=== PATIENT | female | born 1955 | race American Indian/Alaskan Native ===

== ENCOUNTER 2017-09-03 20:35 | Emergency (ER) | payer OTHER ==
[2017-09-03 20:48] VITALS: BP 142/73
[2017-09-03] MEDS ORDERED: PEPCID IV ONE ×2 (20:49→21:05)
[2017-09-03] MEDS ORDERED: DECADRON ONE (20:49)
[2017-09-03] MEDS ORDERED: BENADRYL ONE (20:49)
[2017-09-03] MEDS ORDERED: BENADRYL IV ONE (21:05)
[2017-09-03] MEDS ORDERED: DECADRON IV ONE (21:05)
--- NOTE | 2017-09-04 01:19 | Emergency Department Report ---
ED General Adult HPI - General Chief complaint: Allergic Reaction Stated complaint: ALLGERIC REACTION Time Seen by Provider: 09/04/17 01:13 Source: patient Mode of arrival: Ambulatory Limitations: No Limitations - History of Present Illness Initial comments: 62-year-old -[place] female comes to the emergency room stating she was eating shrimp when she began to have allergic reaction about 30 minutes prior to arrival. Patient complains of generalized itchiness hives to the chest and abdomen and face swelling. Patient denies any chest pain no difficulty swallowing or difficulty breathing. Patient reports that she has been eating shrimp for the last 3 days with no problem. Patient reports that she started eating for today from [employer] and she started to have allergic reaction. Patient was unaware that she has any allergies to any foods or medication. Patient reports she does have a past medical history of GERD and hypertension. -: minutes(s) ([employer]) Location: face, chest, back, upper extremity, lower extremity Severity scale (0 -10): 7 Treatments Prior to Arrival: none - Related Data Previous Rx's Medication Instructions Recorded Last Taken Type EPINEPHrine [Epipen 2-Dionisio] 0.3 mg IJ ONCE PRN #2 auto.injct 09/04/17 Unknown Rx predniSONE [Deltasone] 20 mg PO QDAY #4 tab 09/04/17 Unknown Rx Allergies Allergy/AdvReac Type Severity Reaction Status Date / Time No Known Allergies Allergy Unverified 09/03/17 20:48 ED Review of Systems ROS: Stated complaint: ALLGERIC REACTION Other details as noted in HPI Constitutional: denies: chills, fever Eyes: denies: eye discharge, vision change ENT: other. denies: throat pain Respiratory: denies: shortness of breath, SOB with exertion, SOB at rest Cardiovascular: denies: chest pain Skin: rash, pruritus ED Past Medical Hx - Past Medical History Hx Hypertension: Yes Hx GERD: Yes - Surgical History Hx Appendectomy: Yes Additional Surgical History: ectopic , bunion removal R foot - Social History Smoking Status: Never Smoker Substance Use Type: None - Medications Home Medications: Home Medications Medication Instructions Recorded Confirmed Last Taken Type EPINEPHrine [Epipen 2-Dionisio] 0.3 mg IJ ONCE PRN #2 auto.injct 09/04/17 Unknown Rx predniSONE [Deltasone] 20 mg PO QDAY #4 tab 09/04/17 Unknown Rx ED Physical Exam - General Limitations: No Limitations General appearance: alert, in no apparent distress - Head Head exam: Present: atraumatic, normocephalic - Eye Eye exam: Present: normal appearance - Neurological Exam Neurological exam: Present: alert, oriented X3 - Psychiatric Psychiatric exam: Present: normal affect, normal mood - Skin Skin exam: Present: warm, dry, intact, normal color. Absent: rash (no rash appreciated as patient was given medication in triage to help with her allergies.) ED Course Vital Signs 09/03/17 09/03/17 20:36 20:43 Temperature 98.8 F 98.8 F Pulse Rate 101 H 98 H Respiratory 20 18 Rate Blood Pressure 142/73 142/73 O2 Sat by Pulse 98 100 Oximetry ED Medical Decision Making - Medical Decision Making Patient has been evaluated by this provider fast track. Patient was given prednisone dexamethasone and Pepcid while in triage Discussed patient I will send her home on a few days of prednisone and recommended for her to get [id number] Benadryl and Pepcid as if she has this reaction again she is able to start getting some relief. Will discharge patient home on EpiPen and prednisone Critical care attestation.: If time is entered above; I have spent that time in minutes in the direct care of this critically ill patient, excluding procedure time. ED Disposition Clinical Impression: Allergic reaction to food Qualifiers: Encounter type: initial encounter Qualified Code(s): T78.1XXA - Other adverse food reactions, not elsewhere classified, initial encounter Disposition: DC-01 TO HOME OR SELFCARE Is pt being admited?: No Does the pt Need Aspirin: No Condition: Stable Instructions: Urticaria (ED), Epinephrine (Injection), Prednisone (By mouth) Additional Instructions: Please take prednisone as prescribed [id number] Benadryl as recommended use EpiPen if he have another reaction causes shortness of breathing difficulty swallowing. Please try to avoid shrimp foods. If her symptoms persist please follow up with her primary care provider to discuss about allergy testing. Prescriptions: EPINEPHrine [Epipen 2-Dionisio] 0.3 mg IJ ONCE PRN #2 auto.injct PRN Reason: Allergic Reaction predniSONE [Deltasone] 20 mg PO QDAY #4 tab Referrals: ABDIFATAH PHAN MD [Primary Care Provider] - 3-5 Days Forms: Work/School Release Form(ED)
== END 2017-09-04 01:41 | disposition home or self-care (01) ==
LOC: ED 20:35
DX: T78.1XXA Other adverse food reactions, not elsewhere classified, initial encounter (principal); I10 Essential (primary) hypertension; K21.9 Gastro-esophageal reflux disease without esophagitis; Z90.49 Acquired absence of other specified parts of digestive tract
CPT/HCPCS: 96374; 96375; 99282; J1100; J1200